=== PATIENT | female | born 1945 | race Caucasian/White ===

== ENCOUNTER → 2017-03-21 | Outpatient (CLI) | payer OTHER ==
[~2017-03-21] VITALS: Ht 162.6 cm; Wt 75.3 kg
[~2017-03-21] MED LIST: IBUPROFEN 200200 M1 PO; MEDROLDOSEPACK PO; MOBIC15 MG PO; NORCO 5-325 TA1 EACH PO
--- NOTE | ~2017-03-21 | HPC ---
[facility] [address] [place] [address] PAIN MANAGEMENT CONSULTATION Name: YURI HERNANDEZ Room #: REG [facility].#: [id number] Admission: 03/21/17 Attend Phys: Jimmy Riggs DO Discharge: Date of : 49 Report #: [id number] THIS REPORT FOR: //name// CC: Jimmy Roque MD DATE OF SERVICE: 03/21/2017 REFERRING PHYSICIAN: Varghese Roque MD. CHIEF COMPLAINT: Low back pain, left lower extremity pain with paresthesias. HISTORY OF PRESENT ILLNESS: As you know, the patient is a very pleasant 71-year-old female, who has been referred to our service for low back pain, left lower extremity pain with paresthesias. The patient indicates pain began without inciting injury or trauma. She indicates pain is aching, stabbing, and sharp in sensation, exacerbated with sitting and lying down, improves with standing and walking. She is placing pain score at 7/10. She has been referred to our service to trial epidural injection under fluoroscopic guidance to determine if her symptoms would be amenable to such procedures. The patient is denying injury or trauma to the low back or left lower extremity that may have led to symptom's progression. She has tried conservative therapy, but has been ineffective at improving symptoms. ALLERGIES: No known drug allergies. CURRENT MEDICATIONS: Ibuprofen 600 mg 3 times a day. SOCIAL HISTORY: The patient denies tobacco, IV, or illicit drug use. Admits to occasional alcoholic beverage. She is retired. Retired years ago. She is unaccompanied today. IMAGING: No new imaging is available. PHYSICAL EXAMINATION: VITAL SIGNS: Blood pressure 153/98, pulse is 84, respiratory rate 16, unlabored. The patient is 98% on room air, height 5 feet 4 inches tall, weight 166 pounds, BMI calculated at 28.5. GENERAL: Well-developed, well-nourished, and well-hydrated. A 71-year-old female appearing her stated age. She is placing pain score today at 7/10. HEENT: Normocephalic and atraumatic. Pupils are equal, round, and reactive to light. Extraocular muscles are intact. Sclerae are nonicteric without injection. NEUROLOGIC: Cranial nerves 2-12 are grossly intact. Speech is fluent. The [place] [address] PAIN MANAGEMENT CONSULTATION Name: YURI HERNANDEZ Room #: REG [facility]#: [id number] Admission: 03/21/17 Attend Phys: Jimmy Riggs DO Discharge: Date of : 49 Report #: [id number] LUNGS: Clear. No wheezes, rhonchi, or rales. CARDIOVASCULAR: Regular. No appreciable gallop or rub. ABDOMEN: Soft, nontender, and nondistended. Normal active bowel sounds. EXTREMITIES: Show no clubbing, no cyanosis, no edema. MUSCULOSKELETAL: Seated straight leg raising is negative. Supine straight leg raising positive on the left. Delphine's test negative. Modified Gaenslen's is positive for axial low back pain. Ankle clonus negative. Babinski is negative. Muscle bulk and tone equal and symmetrical in lower extremities. Deep tendinous reflexes are equal and symmetrical. Patellar and Achilles intact. Gait is slightly antalgic, favoring left lower extremity over right. ASSESSMENT: 1. Symptomatic lumbar radiculopathy. 2. Displacement of lumbar intervertebral disk with radiculopathy. 3. Lumbosacral spondylosis with radiculopathy. 4. Lumbar degeneration. 5. Chronic intractable pain. PLAN: 1. Based on today's physical exam, the history the patient has provided, and the description the patient uses in regards to pain, as well as the distribution of symptoms, likely source of the patient's pain is lumbar radiculopathy. We have discussed with the patient treatment options for lumbar radicular symptoms. These would include physical therapy, stretching exercises, and core strengthening. We discussed medication management with neuropathic pain medications and consistent nonsteroidal anti-inflammatory. We discussed epidural injection under fluoroscopic guidance. We discussed spinal cord stimulator therapy and surgical options. After reviewing the risks and benefits of all proposed treatment options, the patient chose to begin with epidural injection under fluoroscopic guidance. The patient has been advised the risks and benefits of a lumbar epidural injection. These risks include but are not necessarily limited to bleeding, bruising, infection, and worsening pain. No relief of pain and also risk of temporary or permanent muscle weakness, temporary or permanent nerve damage, possible paralysis and . The patient states she understood and wished to proceed. 2. No medication changes were made at today's visit. The patient to continue current medical therapy as previously prescribed. 3. The patient to return to our clinic on an as needed basis for a possible epidural injection under fluoroscopic guidance and to discuss the efficacy of today's procedure. PROCEDURE NOTE: This is the first procedure of the first series that the patient is undergoing. [facility] [address] [place] [address] PAIN MANAGEMENT CONSULTATION Name: YURI HERNANDEZ Room #: REG [facility]#: [id number] Admission: 03/21/17 Attend Phys: Jimmy SoaresMichelle OneilDO Discharge: Date of : 47 Report #: [id number] After obtaining written consent, the patient was taken back to the fluoroscopy suite, placed in a prone position with pillow under the abdomen to decrease lumbar lordosis. The skin overlying the lumbosacral area was then prepped and draped in aseptic fashion. The lumbar vertebral interspace was then identified by AP fluoroscopy. The skin and subcutaneous tissue overlying the target site of injection was anesthetized with 3 mL 1% lidocaine. A 20-guage 3-1/2 inch Tuohy needle was then advanced under fluoroscopic guidance towards the epidural space using a left paramedian approach. The epidural space was identified using loss of resistance to air technique. After negative aspiration for heme or cerebrospinal fluid, a total of 1 mL of Omnipaque was injected. A lumbar epidurogram was confirmed using both AP and lateral fluoroscopy. After negative aspiration for heme or cerebrospinal fluid, 5 mL of solution containing 2 mL 40 mg per mL, 80 mg total triamcinolone and 3 mL of lidocaine 1% was injected in increments. Contrast spread was noted posterior epidural space. The needle was then retracted approximately half way and needle tract flushed with 1 mL of 1% lidocaine. Needle was then removed. There were no apparent sensory or motor deficits in the lower extremity following the procedure. A sterile bandage was placed over the injection site. The heart rate, pulse, oximetry and blood pressure were continuously monitored after the procedure. There were no apparent complications. The patient tolerated the procedure well and was carefully escorted to the recovery room in stable condition. There were no apparent complications. After meeting discharge criteria, the patient was then discharged home. By: [id number] Jimmy Riggs DO /jh
[2017-03-21 09:07] VITALS: BP 153/98
== END ==
LOC: PAIN 06:47
DX: M47.27 Other spondylosis with radiculopathy, lumbosacral region (principal); M79.662 Pain in left lower leg; M51.16 Intervertebral disc disorders with radiculopathy, lumbar region; G89.29 Other chronic pain; Z87.891 Personal history of nicotine dependence

== ENCOUNTER → 2017-05-23 | Outpatient (CLI) | payer OTHER | LOC: RAD 09:26 | DX: Z12.31 Encounter for screening mammogram for malignant neoplasm of breast (principal) ==

== ENCOUNTER → 2018-05-23 | Outpatient (CLI) | payer OTHER | LOC: RAD 01:22 | DX: Z12.31 Encounter for screening mammogram for malignant neoplasm of breast (principal) ==

== ENCOUNTER → 2018-08-28 | Outpatient (CLI) | payer OTHER ==
[~2018-08-28] VITALS: Ht 162.6 cm; Wt 72.6 kg
--- NOTE | ~2018-08-28 | PATH ---
[facility] [place] [address] PATHOLOGY RPT PROCEDURE Name: YURI HERNANDEZ Room #: [facility] [id number] Admission: 08/28/18 Date of : 49 Discharge: Report #: [id number] Path Case #: [id number] [facility] Accession Number: [id number] . 01 Material submitted: . BX OF RECTAL POLYP X 2 . 01 Clinical history: . Pre-OP DX: Hx of polyp Post-OP DX: Colon polyp . 02 Diagnosis: Polyp x2, rectal polyp, endoscopic biopsy: - Hyperplastic polyp. - Negative for dysplasia. . (IUV:mml; 08/29/18) QLM/08/29/2018 . 02 Electronically signed: . Elaine Watt MD, Pathologist NPI- [id number] . 01 Gross description: . Received in formalin labeled "Scout, Yuri, BX of polyp at rectum," are 2 segments of mattson soft tissue measuring 0.7 x 0.3 x 0.3 cm in aggregate dimensions and ranging from 0.3 to 0.4 cm in maximum dimension. The specimen is submitted entirely in cassette A1. (TSD; 08/28/2018) TOB/TOB . 02 Pathologist provided ICD-10: K62.1 . 02 CPT . 330138 Specimen Comment: A courtesy copy of this report has been sent to Specimen Comment: [phone], . Specimen Comment: Report sent to / DR WALKER Specimen Comment: A duplicate report has been generated due to demographic updates. Performed at: 01 [facility] [address] [id number] MD Morgan Perez MD Phone: [phone] Performed at: 02 [facility] [address] [place] [address] PATHOLOGY RPT PROCEDURE Name: YURI HERNANDEZ Abhishek [facility] [id number] Admission: 08/28/18 Date of : 49 Discharge: Report #: [id number] Path Case #: [id number] [address] [place] [id number] MD Elaine Watt MD Phone: [phone]
--- NOTE | ~2018-08-28 | P ---
[facility] [place] [address] [place] [address] PROCEDURE REPORT Name: YURI HERNANDEZ Room #: REG [facility]#: [id number] Admission: 08/28/18 Attend Phys: Nic Nunez Discharge: Date of : 49 Report #: [id number] THIS REPORT FOR: //name// CC: Nic Roque DATE OF SERVICE: 08/28/2018 PROCEDURE PERFORMED: Colonoscopy with biopsies. HISTORY OF PRESENT ILLNESS: The patient is a 73-year-old female, with a history of colon polyps 5 years ago, here for routine followup. She also has a family history of colon cancer. She denies any symptoms at this time. DESCRIPTION OF PROCEDURE: The risks and benefits of the procedure were explained to the patient, those risks including, but not limited to, bleeding, perforation and the risk of sedation. She understood these risks and gave informed consent. Sedation was given using propofol per anesthesia. Next, a digital rectal exam was initially performed, which was normal. Next, using a standard Olympus colonoscope, the scope was placed in the patient's anus and advanced under direct vision to the cecum. The overall prep was excellent. The cecum and ileocecal valve were normal in appearance. The ascending, transverse and descending colon were normal. A few scattered diverticula were noted in the sigmoid colon, otherwise normal. In the rectum, two 3-4 mm sessile polyps were noted. Both were removed with cold forceps, otherwise normal. On retroflexion, no abnormalities were noted. The scope was then withdrawn and the procedure terminated. The patient tolerated the procedure well. IMPRESSION: 1. Sigmoid diverticulosis. 2. Two rectal polyps. 3. Otherwise, normal colonoscopy. RECOMMENDATIONS: 1. Await biopsy results. 2. Repeat colonoscopy in 5 years. Thank you for allowing me to participate in her care. <ELECTRONICALLY SIGNED> By: Nic Hugo MD 08/30/18 1531 1050 20 Nic Hugo MD /nt
== END | disposition home or self-care (01) ==
LOC: GI 08:56
DX: Z12.11 Encounter for screening for malignant neoplasm of colon (principal); Z86.010 Personal history of colon polyps; Z80.0 Family history of malignant neoplasm of digestive organs; K62.1 Rectal polyp; K57.30 Diverticulosis of large intestine without perforation or abscess without bleeding; Z87.891 Personal history of nicotine dependence; Z98.890 Other specified postprocedural states; Z85.3 Personal history of malignant neoplasm of breast; Z79.899 Other long term (current) drug therapy
CPT/HCPCS: 62110; 62900

== ENCOUNTER → 2019-05-30 | Outpatient (CLI) | payer OTHER | LOC: RAD 14:47 | DX: Z12.31 Encounter for screening mammogram for malignant neoplasm of breast (principal) ==

== ENCOUNTER → 2019-08-12 | Outpatient (CLI) | payer OTHER ==
[~2019-08-12] VITALS: Ht 162.6 cm; Wt 76.3 kg
[2019-08-12 10:11] VITALS: BP 115/75
--- NOTE | 2019-08-12 10:30 | NUR ---
Pain Clinic Assessment: 1. History of Osteoarthritis: BACK History of Rheumatoid Arthritis: NONE 2. Height: 5 ft. 4 in. 162.6 cm. Weight: 168.2 lb. oz. 76.295 kg. Patient's BMI: 28.9 3. Vital Signs: BP: 115/75 Pulse: 89 Resp: 16 Temp: 02 Sat: 96 ECG Mon: 4. Pain Intensity: 5-6 5. Fall Risk: Dizziness: N Needs help standing or walking: N Fallen in the last 3 months: N Fall risk comments: 6. Patient on Blood Thinner: None 7. History of Hypertension: N 8. Opioid Therapy greater than 6 weeks: N Opiate Contract Signed: 9. Risk Assessment Tool Provided: LOW RISK 0/3 10. Functional Assessment Tool: 41 11. Recreational Drug Use: Never Drug Type: Tobacco Use: Former Smoker Tobacco Type: Amount or Packs/day: How Many Years: Alcohol Use: Yes Frequency: Weekly Quant: 1-2
--- NOTE | 2019-08-26 08:01 | HPC ---
[facility] [address] [place] [address] PAIN MANAGEMENT CONSULTATION Name: YURI HERNANDEZ Room #: REG [facility]#: [id number] Admission: 08/12/19 Attend Phys: Jimmy Riggs DO Discharge: Date of : 47 Report #: [id number] THIS REPORT FOR: //name// CC: Jimmy Roque DATE OF SERVICE: 08/12/2019 REFERRING PHYSICIAN: Varghese Roque MD CHIEF COMPLAINT: Low back pain, left lower extremity pain with paresthesias. HISTORY OF PRESENT ILLNESS: As you know, the patient is a very pleasant 74-year-old female returning in followup visit requesting to undergo next in the series of lumbar epidural injections under fluoroscopic guidance. She is placing pain score at 5-6/10. States pain is aching, sharp, numbness and dull in sensation, exacerbated with bending, sleeping, improves with medications, sitting and recent injections. Her most recent epidural injection provided 90% improvement in overall pain lasting for nearly 2 years. She returns today in followup visit to undergo next in the series of epidural injections. She denies new injury, trauma or any major changes in medication management since our last visit. ALLERGIES: No known drug allergies. CURRENT MEDICATIONS: Ibuprofen 200 mg 2 tabs 3 times a day. SOCIAL HISTORY: The patient denies tobacco, alcohol or IV illicit drug use. She is retired, retired years ago, unaccompanied today. IMAGING: No new imaging available. PQRS: The patient has arthritic changes of the lumbar spine, bilateral hips, no rheumatoid arthritis. She is placing pain intensity 5-6/10 not a fall risk, has not had a fall in last 3 months, not on blood thinners, not treated for hypertension. She is not on opioids, but does have a low opioid addiction potential. Pain impact score today 41/70 indicating moderate interference of daily activities secondary to pain. PHYSICAL EXAMINATION: VITAL SIGNS: Blood pressure 115/75, pulse 89, respiratory rate 16 and unlabored. The patient is 96% on room air. Height 5 feet 4 inches tall, weight 168.2 pounds, BMI calculated 28.9. GENERAL: Well-developed, well-nourished, well-hydrated 74-year-old female appearing stated age, pain is rated anywhere from 5-6/10. [address] [address] PAIN MANAGEMENT CONSULTATION Name: YURI HERNANDEZ [facility] [id number] Admission: 08/12/19 Attend Phys: Jimmy Riggs DO Discharge: Date of : 49 Report #: [id number] HEENT: Normocephalic, atraumatic. Pupils equal, round, reactive to light. Extraocular muscles are intact. EXTREMITIES: Show no clubbing, no cyanosis. There is no edema. MUSCULOSKELETAL: Seated straight leg raising remains negative. Supine straight leg raising is now positive on the left. Delphine's test negative. Modified Gaenslen's positive for axial low back pain. Ankle clonus negative. Babinski is negative. Gait mildly antalgic favoring left lower extremity over right. Muscle bulk and tone appears symmetrical in comparing left lower extremity to right. ASSESSMENT: 1. Symptomatic lumbar radiculopathy. 2. Displacement of lumbar intervertebral disk with radiculopathy. 3. Lumbosacral spondylosis with radiculopathy. 4. Lumbar degeneration. 5. Chronic intractable pain. PLAN: 1. The patient returns today in followup visit to undergo next in the series of lumbar epidural injections under fluoroscopic guidance. As you are aware, the patient did very well with previous epidural injection providing 90% improvement in overall pain lasting for nearly 2 years. She returns today in followup visit to undergo next in the series of epidural injections. She has denied any injury or trauma that may have led to symptom reoccurrence. She has been advised risks and benefits of a lumbar epidural injection. These risks include but are not necessarily limited to bleeding, bruising, infection, worsening pain, no relief of pain, also risk of temporary or permanent muscle weakness, temporary or permanent nerve damage, possible paralysis, post-dural puncture headache and . The patient states understood and wished to proceed. 2. No medication changes made at today's visit. The patient will continue current medical therapy as prior prescribed. 3. The patient will return to our clinic on an as needed basis for possible next in the series of lumbar epidural injections. PROCEDURE NOTE DESCRIPTION OF PROCEDURE: L5-S1 right paramedian epidural steroid injection under fluoroscopic guidance. This is the first procedure of the second series that the patient is undergoing. After obtaining written consent, the patient was taken back to the fluoroscopy suite, placed in a prone position with pillow under the abdomen to decrease lumbar lordosis. The skin overlying the lumbosacral area was then prepped and draped in aseptic fashion. The L5-S1 vertebral interspace was then identified by AP fluoroscopy. The skin and subcutaneous tissue overlying the target site [address] [address] PAIN MANAGEMENT CONSULTATION Name: YURI HERNANDEZ Room #: REG [facility]#: [id number] Admission: 08/12/19 Attend Phys: Jimmy Riggs DO Discharge: Date of : 49 Report #: [id number] of injection was anesthetized with 3 mL 1% lidocaine. A 20-gauge 3-1/2-inch Tuohy needle was then advanced under fluoroscopic guidance towards the epidural space using a right paramedian approach. The epidural space was identified using loss of resistance to air technique. After negative aspiration for heme or cerebrospinal fluid, a total of 1 mL of Omnipaque was injected. A lumbar epidurogram was confirmed using both AP and lateral fluoroscopy. After negative aspiration for heme or cerebrospinal fluid, 5 mL of a solution containing 2 mL 40 mg per mL, 80 mg total triamcinolone along with 3 mL of lidocaine 1% injected in increments. Contrast spread was noted posterior epidural space. The needle was then retracted approximately half way and needle tract flushed with 1 mL of 1% lidocaine. Needle was then removed. There were no apparent sensory or motor deficits in the lower extremity following the procedure. A sterile bandage was placed over the injection site. The heart rate, pulse, oximetry and blood pressure were continuously monitored after the procedure. There were no apparent complications. The patient tolerated the procedure well and was carefully escorted to the recovery room in stable condition. There were no apparent complications. After meeting discharge criteria, the patient was then discharged home. <ELECTRONICALLY SIGNED> By: Jimmy Riggs DO 08/26/19 0801 [id number] Jimmy Riggs, DO /nt
== END | disposition home or self-care (01) ==
LOC: PAIN 06:50
DX: M51.16 Intervertebral disc disorders with radiculopathy, lumbar region (principal); M47.27 Other spondylosis with radiculopathy, lumbosacral region; G89.29 Other chronic pain; I10 Essential (primary) hypertension; Z79.899 Other long term (current) drug therapy; Z87.891 Personal history of nicotine dependence

== ENCOUNTER → 2020-05-31 | Outpatient (CLI) | payer OTHER | LOC: BC 10:16 → RAD 13:54 | PROVIDERS: ATTEND Family Medicine | DX: Z12.31 Encounter for screening mammogram for malignant neoplasm of breast (principal) ==

== ENCOUNTER → 2021-06-01 | Outpatient (CLI) | payer OTHER | LOC: BC 09:09 → EDSTATUS 11:41 → BC 13:15 | PROVIDERS: ATTEND Family Medicine | DX: Z12.31 Encounter for screening mammogram for malignant neoplasm of breast (principal) ==